=== PATIENT | female | born 1990 | race Caucasian/White ===

== ENCOUNTER 2017-10-27 02:08 | Inpatient (IN) | payer BC, OTHER ==
[2017-10-27 02:39] VITALS: BMI 30.4
[2017-10-27] MEDS ORDERED: Lactated Ringer's 1,000 ML IV PRN (03:15)
[2017-10-27] MEDS ORDERED: Methylergonovine 0.2 MG/ML VIAL IM PRN ×2 (03:15→23:22)
[2017-10-27] MEDS ORDERED: Ondansetron HCl/PF 4 MG/2 ML Vial IVP PRN ×3 (03:15→23:22)
[2017-10-27] MEDS ORDERED: HYDROcodone/Acetaminophen 5/325 mg Tablet PO PRN ×3 (03:15→23:22)
[2017-10-27] MEDS ORDERED: Diphenoxylate HCl/Atropine Tablet PO PRN ×2 (03:15)
[2017-10-27] MEDS ORDERED: Carboprost 250 MCG/ML AMP IM PRN (03:15)
[2017-10-27] MEDS ORDERED: Promethazine HCl 25 MG/ML VIAL IM PRN ×2 (03:15→17:53)
[2017-10-27] MEDS ORDERED: Penicillin G Potassium 5 MILL.UNITS in Sodium Chloride 0.9% 100 ML IVPB SCH (03:15)
[2017-10-27] MEDS ORDERED: Lidocaine 1% (PF) 30 ML VIAL SC PRN (03:15)
[2017-10-27] MEDS ORDERED: Ibuprofen 800 MG TAB PO PRN (03:15)
[2017-10-27] MEDS ORDERED: Penicillin G Potassium 5 MILL.UNITS VIAL ONE (03:23)
[2017-10-27 03:55] LABS: Hemoglobin 11.7 g/dL (12.0-16.0); Mean Corpuscular HGB CONC 34.6 g/dL (32.0-36.0); Mean Corpuscular Volume 89.6 fl (81.0-99.0); Mean Platelet Volume 8.8 fL (7.4-10.4); Platelet Count 203 thou/uL (130-400); RBC Distribution Width 12.2 % (11.5-14.5); Red Blood Cell (RBC) Count 3.78 mill/uL (4.20-5.40); White Blood Cell (WBC) Count 7.8 thou/uL (4.8-10.8)
[2017-10-27 04:30] LABS: HBSAg Index 0.17 S/CO (0-0.99); Hep B Surf Ag Non-Reactive S/CO (NonReactive)
[2017-10-27] MEDS: Penicillin G 2.5 MILL.units 2.5 MILL.UNITS in Premix Bag 1 BAG IVPB SCH ×4 (07:36→22:12)
--- NOTE | 2017-10-27 09:37 | PDOC.LDHP ---
Labor and Delivery H&P Chief complaint: loss of fluid HPI: SROM clear fluid at 0100 on 10/27/17 and irregular mild contractions. Current gestational age (weeks): 39 Due date: 11/03/17 Dating criteria: last menstrual period (confirmed with first trimester US at 5w4d.) Grav: 1 Para: 0 Current complications: none Abnormal US findings: No Current medications: pre- vitamins Previous surgical history: other (2011 left ovarian cystectomy, 2016 R. para- tublular cyst.) Allergies/Adverse Reactions: Allergies Allergy/AdvReac Type Severity Reaction Status Date / Time No Known Allergies Allergy Verified 10/27/17 02:37 Social history: none - Physical Exam Vital signs reviewed and normal: yes General: breathing through contractions Heart: RRR Lungs: nonlabored breathing Abdomen: gravid Extremeties: trace edema FHT: category 1 [place] contractions every: Q4-5mins - Vaginal Exam cm dilated: 5 Effacement: 100% Station: 0 - OB Labs Blood type: A RH: positive Antibody Screen: negative HIV: negative RPR: negative HEPSAg: negative 1 hour GCT: negative GBS: positive Urine drug screen: not done Rubella: immune Additional Labs: varicella immune - Assessment L&D Assessment: term rupture in membranes - Plan Plan: admit to L&D, GBS antibiotic prophylaxis -: Low intervention protocol
[2017-10-27] MEDS ORDERED: Bupivacaine 0.75% 13.4 ML, fentaNYL Citrate/PF 400 MCG in Sodium Chloride 0.9% 78.6 ML EPIDURAL SCH (17:00)
[2017-10-27] MEDS ORDERED: DISCONTINUE ALL PREVIOUS NARCOTICS FS SCH (17:00)
--- NOTE | 2017-10-27 17:23 | PDOC.LDPN ---
Labor & Delivery Progress Note - Subjective Subjective: painful contractions - Objective Vital signs reviewed and normal: yes General: breathing through contractions Uterine fundus: non tender Dilation: 9 Effacement: 100% Station: 1+ FHT: category 1 [place] contractions every: Q3-7 mins - Assessment (1) Primigravida Code(s): Z34.00 - ENCNTR FOR SUPRVSN OF NORMAL FIRST , UNSP TRIMESTER Current Visit: Yes Status: Acute Plan: other -: is in persistent ROT. Cervical dilation has be persistently 9cm for 4 hours. An attempt to manually rotate the from ROT to OA was made without success. At this time I recommended the patient get an epidural for pain management, rest, and to relax the pelvic floor muscles. After epidural is in place, labor forces will be corrected with pitocin augmentation. Patient agrees with plan of care.
[2017-10-27] MEDS ORDERED: Lactated Ringer's 500 ML IV PRN (17:53)
[2017-10-27] MEDS ORDERED: Acetaminophen 325 MG TAB PO PRN (17:53)
[2017-10-27] MEDS ORDERED: ePHEDrine/0.9% NaCl/PF SYRINGE 50 mg/10 ml SLOW IVP PRN (17:53)
[2017-10-27] MEDS ORDERED: diphenhydrAMINE 50 MG/ML VIAL IVP PRN (17:53)
[2017-10-27] MEDS ORDERED: Naloxone HCl 0.4 mg/ml Vial IVP PRN ×2 (17:53)
[2017-10-27] MEDS ORDERED: Eucerin (Mineral Oil/Petrolatum,White) 30 gm Jar TOP PRN (17:53)
[2017-10-27] MEDS ORDERED: Fentanyl 4mcg/Marcaine 0.1% Cassette 100 ML EPIDURAL SCH (18:00)
[2017-10-27] MEDS ORDERED: Communication Order-Pharmacy FS SCH (18:00)
[2017-10-27] MEDS ORDERED: Lactated Ringer's 1,000 ML IV SCH (18:00)
[2017-10-27] MEDS ORDERED: NS w/ Oxytocin 10 units 500 ML IV SCH (18:00)
[2017-10-27] MEDS: NS / Oxytocin 40 units/1000ml 1,000 ML IV PRN ×2 (20:31→22:13)
--- NOTE | 2017-10-27 21:16 | PDOC.OPDEL ---
OB Operative/Delivery Note Delivery Dr/Surgeon: eleanor maria CNM Pre-Delivery Diagnosis: active labor Procedure/Post Delivery Dx: spontaneous vaginal delivery Weeks gestation: 39 Anesthesia: epidural - Findings A Sex: male Weight: 7 lb 5 oz - 1 min: 8 - 5 min: 9 - Additional Findings/Plan Placenta delivered: spontaneous Repaired Obstetrical Laceration: 2nd degree (vaginal and first degree perineal. repaired with 2.0 vicryl.) Estimated blood loss: 300 Post delivery plan: routine recovery
[2017-10-27] MEDS ORDERED: Benzocaine/Menthol 20-0.5% 60 ML CAN TOP PRN (23:22)
[2017-10-27] MEDS ORDERED: Milk Of Magnesia 30 ML UDCUP PO PRN (23:22)
[2017-10-27] MEDS ORDERED: Lanolin Ointment 7 GM TUBE TOP PRN (23:22)
[2017-10-27] MEDS ORDERED: Misoprostol 200 MCG TAB VAG SCH (23:22)
[2017-10-27] MEDS ORDERED: Bisacodyl 10 MG SUPP PR PRN (23:22)
[2017-10-27] MEDS ORDERED: NS / Oxytocin 40 units/1000ml 1,000 ML IV SCH (23:22)
[2017-10-27] MEDS ORDERED: Adacel (T-DAP) 0.5 ML VIAL IM ONE (23:22)
[2017-10-28] MEDS: Ibuprofen 800 MG TAB PO SCH ×3 (05:11→21:36)
[2017-10-28 05:21] LABS: Mean Corpuscular HGB CONC 34.2 g/dL (32.0-36.0); Mean Corpuscular Hemoglobin 30.6 pg (27.0-31.0); Mean Corpuscular Volume 89.5 fl (81.0-99.0); Mean Platelet Volume 8.4 fL (7.4-10.4); Platelet Count 156 thou/uL (130-400); RBC Distribution Width 12.1 % (11.5-14.5); Red Blood Cell (RBC) Count 3.26 mill/uL (4.20-5.40)
--- NOTE | 2017-10-28 09:06 | PDOC.PP ---
Post Progress Note Post Day #: 1 Subjective: Doing well. Infant last breastfed well at 0300. would like help PO intake tolerated: yes Flatus: yes Ambulation: yes Vital Signs (12 hours) Temp Pulse Resp BP BP 10/28/17 08:00 98.4 F 70 18 112/69 10/28/17 03:39 98.9 F 77 16 111/60 10/28/17 00:53 98.7 F 63 16 121/61 10/27/17 23:45 98.1 F 73 16 114/66 Weight Weight 183 lb - Physical Examination General: NAD Respiratory: non-labored breathing Abdominal: + bowel sounds, lochia (scant) Fundus firm & at: -1 Extremities: negative homans (B) Skin: no rash Perineum: non-edematous. intact Neurological: no gross focal deficits Psychiatric: A&Ox3, normal affect Result Diagrams: 10/28/17 05:07 Additional Labs: Post Labs Blood Type A POSITIVE 10/27/17 02:55 Hep Bs Antigen Non-Reactive S/CO (NonReactive) 10/27/17 02:55 (1) Primigravida Code(s): Z34.00 - ENCNTR FOR SUPRVSN OF NORMAL FIRST , UNSP TRIMESTER Status: Acute - Assessment/Plan A: G1 now P1 sp at 39 weeks with NML PPD #1 exam. P: Assisted at bedside with . infant is very gaggy and spitty. discussed Hand expression and or pumping Q2-3 hours if is unwilling to breastfeed. Demonstrated hand expression technique and syringe fed 1ml to infant. routine care.
[2017-10-28] MEDS: Ferrous Sulfate 325 MG TAB PO SCH ×2 (09:42→17:38)
[2017-10-28] MEDS: Docusate Calcium (SURFAK) 240 MG CAP PO SCH ×2 (09:42→21:35)
[2017-10-28] MEDS: Prenatal Vitamin 1 TAB PO SCH (09:42)
[2017-10-28] MEDS: HYDROcodone/Acetaminophen 5/325 mg Tablet PO PRN ×2 (09:44→18:30)
[2017-10-28] MEDS ORDERED: Bupivacaine/Epinephrine 0.25% 30 ML VIAL ONE (20:58)
[2017-10-29] MEDS: Ibuprofen 800 MG TAB PO SCH (05:50)
[2017-10-29 08:01] VITALS: BP 125/82; TEMP 98.5
[2017-10-29] MEDS: Prenatal Vitamin 1 TAB PO SCH (09:34)
[2017-10-29] MEDS: Docusate Calcium (SURFAK) 240 MG CAP PO SCH (09:34)
[2017-10-29] MEDS: Ferrous Sulfate 325 MG TAB PO SCH (09:34)
== END 2017-10-29 12:35 | disposition home or self-care (01) | DRG 775 ==
LOC: L&D/OP 02:08 → L&D-LIB 03:10 → L&D 20:00 → 3SW 23:46
PROVIDERS: ADMIT Student in an Organized Health Care Education/Training Program; ATTEND Student in an Organized Health Care Education/Training Program
PROC: 10E0XZZ Delivery of Products of Conception, External Approach (ICD-10-PCS; principal; 2017-10-28)
PROC: 0KQM0ZZ Repair Perineum Muscle, Open Approach (ICD-10-PCS; 2017-10-28)
DX: O70.1 Second degree perineal laceration during delivery (principal); Z37.0 Single live birth; O99.824 Streptococcus B carrier state complicating childbirth; Z3A.39 39 weeks gestation of pregnancy
CPT/HCPCS: 36415; 51702; 76815; 85027; 86850; 86900; 86901; 87340; 90715; 99285; J2001; J2405; J2540; J3010; J7050